=== PATIENT | female | born 1985 | race Hispanic/Latino ===

== ENCOUNTER 2024-04-16 21:42 | Emergency (ER) | payer OTHER ==
[~2024-04-16] VITALS: Ht 154.9 cm; Wt 77.1 kg
--- NOTE | 2024-04-16 21:55 | ERN ---
General Chief Complaint: Other Problems Stated Complaint: HERE FOR TB SCREENING; Time Seen by MD: 21:46 History of Present Illness Initial Comments Comes in with [facility] control requesting x-ray for rule out TB. Patient was born in [place]. Patient reports that she has had PPDs before and they are always positive. Patient does have a BCG vaccination scar in the right shoulder. Patient denies any coughing fever or weight loss. She had a PPD placed and was read as positive at 20 mm her paperwork. Comes in for chest x-ray. Allergies: Coded Allergies: No Known Allergies (Unverified Allergy, Unknown, 04/16/24) ROS Dictation Ten systems reviewed and negative except as noted in HPI Physical Exam Physical Exam Dictation GEN: non toxic, NAD HEENT: atrumatic, PERRL, EOMI, conjunctivae normal NECK: Soft supple nontender Heart RRR, no murmurs Chest: No deformity Lungs: Lungs clear to auscultation Ab: Soft nondistended nontender Back: No midline step-offs. No gross deformity. No CVA tenderness : m/s: Moving all four extremities. No gross deformity. BCG vaccination scar right shoulder. Right forearm has PPD placed that does appear indurated. Paperwork reports measured 20 mm. Neuro: CN 2-12 intact. Moving all four extremities. Psych: Cooperative Results EKG/XRAY/US/CT/MRI X-RAY Comment Two-view chest x-ray clear on my read. No cavitary lesions suggestive of TB. No infiltrate. MDM No symptoms of active pulmonary TB. We will do chest x-ray. 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
[2024-04-16 22:37] VITALS: BP 118/72; PULSE 74; RESP 18; TEMP 98; O2SAT 98
--- NOTE | 2024-04-17 08:31 | HMCIMG ---
CHEST 2VWS REASON: positive ppd, no sx COMPARISON: None FINDINGS: Two views of the chest were obtained. Lungs are clear. Heart size is normal. There is no pulmonary vascular congestion. Mediastinum and bony thorax appear unremarkable. IMPRESSION: Normal two view chest x-ray.
== END 2024-04-16 22:43 ==
LOC: EDH 21:42
DX: R76.11 Nonspecific reaction to tuberculin skin test without active tuberculosis (principal)
CPT/HCPCS: 71046; 99284